=== PATIENT | female | born 1980 | race Hispanic/Latino ===

== ENCOUNTER 2017-12-26 11:14 | Emergency (ER) | payer MEDICAID ==
[2017-12-26 11:29] VITALS: TEMP 98.3; O2SAT 99
[2017-12-26] MEDS ORDERED: Sodium Chloride 0.9% 1,000 ML IV ONE (12:19)
[2017-12-26 13:01] LABS: BASO # 0.1 K/uL (0.0-0.2); BASO % 0.9 % (0.0-2.0); EOS % 0.4 % (0.0-4.0); HEMOGLOBIN 13.3 g/dL (11.0-16.0); LYMPH # 1.9 K/uL (1.0-4.3); LYMPH % 29.8 % (20.0-40.0); MEAN CELL VOLUME 88.7 fL (81.0-99.0); MEAN CORPUSCULAR HEMOGLOBIN 30.8 pg (27.0-31.0); MEAN CORPUSCULAR HGB CONC 34.8 g/dL (33.0-37.0); MEAN PLATELET VOLUME 8.2 fL (7.2-11.7); MONO # 0.3 K/uL (0.0-0.8); MONO % 4.3 % (0.0-10.0); NEUT # 4.1 K/uL (1.8-7.0); NEUT % 64.6 % (50.0-75.0); NRBC % 0.1 % (0.0-2.0); RBC 4.31 Mil/uL (3.80-5.20); RED CELL DISTRIBUTION WIDTH 12.6 % (11.5-14.5); WHITE BLOOD COUNT 6.4 K/uL (4.8-10.8)
[2017-12-26 13:05] LABS: SQUAMOUS EPITHIAL 2 /hpf (0-5); URINE BACTERIA RARE (<OCC); URINE BILIRUBIN NEGATIVE (NEGATIVE); URINE BLOOD 1+ (NEGATIVE); URINE CLARITY Clear (Clear); URINE COLOR Yellow (YELLOW); URINE GLUCOSE (UA) NORMAL (Normal); URINE LEUKOCYTE ESTERASE NEG Leu/uL (Negative); URINE PROTEIN NEGATIVE (NEGATIVE); URINE UROBILINOGEN NORMAL mg/dL (0.2-1.0)
[2017-12-26 13:06] LABS: HCG,QUALITATIVE URINE NEGATIVE (NEGATIVE)
[2017-12-26 13:17] LABS: ALB/GLOB RATIO 1.1 (1.0-2.1); ALBUMIN 4.2 g/dL (3.5-5.0); ALT/SGPT 92 U/L (9-52); AST/SGOT 70 U/L (14-36); BLOOD UREA NITROGEN 8 mg/dL (7-17); CALCIUM 8.4 mg/dl (8.6-10.4); GFR NON-AFRICAN AMERICAN > 60
[2017-12-26] MEDS ORDERED: Potassium Chloride 20 mEq ER Tab PO STA (13:22)
--- NOTE | 2017-12-26 13:34 | C.PDOC ---
History Of Present Illness 37yo female, with history of migraine headaches, comes to ER reporting a headache for the past 4 days. Patient states the pain initially starts in the "back and is all over." She reports associated photophobia, sensitivity to sound and since yesterday, has had nausea and vomiting. She reports the current headache episode is similar to the previous. Patient is following up with Dr. Mattson for her symptoms and states she has taken multiple medications including Topamax, Imitrex, Fioricet, with no resolution of symptoms. Patient states she called Dr. Mattson's office today and was advised to come to the ER; she was also evaluated by her PMD, given IM steroids and was instructed to come to the ER for further evaluation. Otherwise, she denies any vision changes, weakness, numbness, vomiting, and offers no additional complaints. PMD: Dr. Olive Trimble Time Seen by Provider: 12/26/17 12:08 Chief Complaint (Nursing): Headache History Per: Patient History/Exam Limitations: no limitations Onset/Duration Of Symptoms: Days (4) Current Symptoms Are (Timing): Still Present Associated Symptoms: Photophobia, Nausea, Vomiting Additional History Per: Patient Past Medical History Reviewed: Historical Data, Nursing Documentation, Vital Signs Vital Signs: Last Vital Signs Temp 98.3 F 12/26/17 11:25 Pulse 87 12/26/17 11:25 Resp 18 12/26/17 11:25 BP 150/106 H 12/26/17 11:25 Pulse Ox 99 12/26/17 11:25 - Medical History PMH: Migraine Surgical History: No Surg Hx - [facility] Procedures CERVICAL LES DESTRUC NEC (02/26/02) Family History: States: No Known Family Hx - Social History Hx Alcohol Use: No Hx Substance Use: No - Immunization History Hx Tetanus Toxoid Vaccination: No Hx Influenza Vaccination: No Hx Pneumococcal Vaccination: No Review Of Systems Except As Marked, All Systems Reviewed And Found Negative. Eyes: Positive for: Other (photophobia). Negative for: Vision Change ENT: Positive for: Other (sensitive to sounds) Gastrointestinal: Negative for: Vomiting Neurological: Positive for: Headache. Negative for: Weakness, Numbness Physical Exam - Physical Exam Appears: Non-toxic, Other (uncomfortable; patient has her head covered by the blanket) Skin: Normal Color Head: Atraumatic, Normacephalic Eye(s): bilateral: Normal Inspection, PERRL, EOMI Neck: Normal, Supple Chest: Symmetrical Cardiovascular: Rhythm Regular Respiratory: Normal Breath Sounds Extremity: Normal ROM Neurological/Psych: Oriented x3, Normal Speech, Normal Cognition, Normal Motor, Normal Sensation ED Course And Treatment - Laboratory Results Result Diagrams: 12/26/17 12:55 12/26/17 12:55 O2 Sat by Pulse Oximetry: 99 (RA) Pulse Ox Interpretation: Normal - CT Scan/US CT Head w/o contrast Other Rad Studies (CT/US): Read By Radiologist, Radiology Report Reviewed CT/US Interpretation: FINDINGS: HEMORRHAGE: No intracranial hemorrhage. BRAIN: No mass effect or edema. No atrophy or chronic microvascular ischemic changes. VENTRICLES: Unremarkable. No hydrocephalus. CALVARIUM: Unremarkable. Note made of a small nonspecific elliptical shaped calcification within the left frontal scalp. PARANASAL SINUSES: Unremarkable as visualized. No significant inflammatory changes. MASTOID AIR CELLS: Unremarkable as visualized. No inflammatory changes. OTHER FINDINGS: None. IMPRESSION: No acute intracranial hemorrhage. Medical Decision Making Medical Decision Making: Impression: 37yo female with headache x 4 days Plan: * CT Head w/o contrast * Labs * IV Fluids * Reglan 10mg IV 1322 Labs reviewed, patient noted to have mild hypokalemia. K-Dur 20meq PO ordered. 1515 CT Head report reviewed, no acute findings. 1528 Dr. Mattson, patient's neurologist called regarding patient; awaiting call back. 1536 Dr Mattson calls back and discussed results. She recommends 100mg Imitrex and discharge. Patient can follow up in the office. Disposition Counseled Patient/Family Regarding: Studies Performed, Diagnosis, Need For Followup - Disposition Referrals: William Mattson MD [Staff Provider] - Disposition: HOME/ ROUTINE Disposition Time: 15:37 Condition: STABLE Additional Instructions: Please follow up with Dr Mattson Continue with your medications Instructions: Migraine Headache (DC) Forms: [employer] [facility] (Greenlandic) - POA Present On Arrival: None - Clinical Impression Clinical Impression: Migraine - PA / DEPUTY ASSESSOR / Resident Statement MD/DO has reviewed & agrees with the documentation as recorded. - Scribe Statement The provider has reviewed the documentation as recorded by the Oscar Finch Provider Attestation: All medical record entries made by the Oscar were at my direction and personally dictated by me. I have reviewed the chart and agree that the record accurately reflects my personal performance of the history, physical exam, medical decision making, and the department course for this patient. I have also personally directed, reviewed, and agree with the discharge instructions and disposition.
[2017-12-26] MEDS ORDERED: Potassium Chloride 20 mEq ER Tab PO ONE (14:17)
--- NOTE | 2017-12-26 15:13 | CT ---
Date of service: 12/26/2017 PROCEDURE: CT HEAD WITHOUT CONTRAST. HISTORY: Headache 4 days, nausea COMPARISON: None available.. TECHNIQUE: Axial computed tomography images were obtained through the head/brain without intravenous contrast. Radiation dose: Total exam DLP = 1018.47 mGy-cm. This CT exam was performed using one or more of the following dose reduction techniques: Automated exposure control, adjustment of the mA and/or kV according to patient size, and/or use of iterative reconstruction technique. FINDINGS: HEMORRHAGE: No intracranial hemorrhage. BRAIN: No mass effect or edema. No atrophy or chronic microvascular ischemic changes. VENTRICLES: Unremarkable. No hydrocephalus. CALVARIUM: Unremarkable. Note made of a small nonspecific elliptical shaped calcification within the left frontal scalp. PARANASAL SINUSES: Unremarkable as visualized. No significant inflammatory changes. MASTOID AIR CELLS: Unremarkable as visualized. No inflammatory changes. OTHER FINDINGS: None. IMPRESSION: No acute intracranial hemorrhage. The the
[2017-12-27 00:08] VITALS: BP 152/104; PULSE 94; RESP 16
== END 2017-12-26 16:12 | disposition home or self-care (01) ==
LOC: C.ER 11:14
DX: G43.909 Migraine, unspecified, not intractable, without status migrainosus (principal); E87.6 Hypokalemia
CPT/HCPCS: 70450; 80053; 81001; 84703; 85025; 96361; 96374; 96375; 99284; J1885; J2765; J7030